=== PATIENT | male | born 1955 | race Caucasian/White ===

== ENCOUNTER → 2017-04-29 | Outpatient (CLI) | payer BC ==
--- NOTE | 2017-05-05 13:35 | RADIOLOGY REPORT PS360 ---
MRI-L-SPINE W/O, MRI-3D RENDERING/MYELOGRAM Ordering Physician: ABBE RAMIREZ Patient Age: 62 years: Male HISTORY: CHRONIC LOW BACK PAIN, CERVICAL CORD COMPRESSION W/ MYELOP Low back pain for 3 years. TECHNIQUE: Sagittal STIR, T1, T2, axial T1 and T2. On 1.5T Siemens wide bore MRI. 3-D MR myelogram image set obtained & performed on MRI workstation. Additional sagittal thin section T2 weighted dataset obtained from this latter acquisition as well (---76 CPT) COMPARISON: is made to previous MRI lumbar October 06, 2015 FINDINGS Large patient.. Vertebral bodies intact with no compression fracture or lesion. Diffuse diminished slight diminished marrow signal not not uncommon large patient's of particular smoker or anemia. Edema throughout the prominent subcutaneous adipose posterior to the lower lumbar spine L5/S1. Moderate diffuse disc bulge most evident central. Probable bilateral pars defects. Also prominent facet arthropathy with generous hypertrophy along the facets and pars extending medial and impinge upon the lateral aspect of the spinal canal... The spinal canal narrows to 9 mm between the hypertrophic facets. Prominent bilateral foraminal encroachment also again noted to previous study. Only question scant 1 mm anterolisthesis of L4 on 5. This feature actually appearing slightly less evident than on 2015 MR L-spine study. 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 The suspect this long-standing noting some changes in the contour of the spinal canal posteriorly. . L4/5. Circumferential disc bulge with slight additional central bulge. Prominent facet arthropathy with hypertrophy narrow the spinal canal prominent fluid at facet joints bilateral. The disc bulge and facet hypertrophy yields moderate/generous foraminal encroachment bilaterally.. Mild central canal stenosis L3/4 disc intact. Neural foramen adequate. Moderate facet arthropathy. L2/3. Borderline central stenosis. Generous facet hypertrophy, arthropathy with fluid at facet joints. Mild foraminal disc bulge bilateral. L1/2. Mild facet hypertrophy. Disc intact. T12/L1 disc intact. /12 disc intact. 3-D myelogram image set shows the very slender volume spinal canal throughout further narrowed due to the hypertrophic facet and disc changes at L3/4, L4/5. Tapering of the inferior thecal sac at and below L5 due to the prominent lipomatosis evident. Facet fluid bilaterally at L4/5 L5/S1 is also a degree evident reflecting the facet arthropathy. IMPRESSION 1. When compared to previous study from 2015 been no significant change of lumbar spine. No significant new findings nor progression previous findings. 2. Findings most pronounced at L5/S1: . At L5/S1. Again bilateral pars defects, exuberant facet arthropathy/hypertrophy, along with bulging disc which all combine to yield a fairly prominent bilateral foraminal encroachment. . 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 Prominent proliferation fat throughout the spinal canal posteriorly at L5-S1 disc additionally compress and narrow the thecal sac through this region similar to previous study. Likely long-standing feature. 3. Degenerative findings at other levels: . At L4/5 disc bulge with prominent facet arthropathy with borderline mild spinal stenosis.. . L3/4 moderate facet arthropathy,. Slightly narrow neural foramen bilaterally. . L2/3 with borderline spinal stenosis due to facet arthropathy .. On several levels of prominent facet arthropathy/hypertrophy with fluid most evident bilateral L4/5 followed by L5/S1 followed by L2/3. Most evident Addendum. Adrenal nodules bilateral incidentally noted Right adrenal nodule. On final review I would note a 2.6 cm right adrenal nodule. Most likely incidental benign adenoma but cannot characterize with current MR.. Warrant correlation with follow up CT adrenal protocol 3 months.. Chest film suggested as well. Alternatively Comparison to any outside CT abdomen may be of benefit.. It was not included on previous axial studies making comparison difficult, but I believe it was likely partially imaged on prior sagittal images suspect most likely is a benign stable feature but difficult to confirm such without additional imaging or follow-up.. Likely small left adrenal nodule also present 1 cm size. And appears stable .
== END ==
LOC: RAD 04-01 10:45
DX: M54.5 Low back pain (principal); G95.20 Unspecified cord compression